=== PATIENT | female | born 1955 | race Caucasian/White ===

== ENCOUNTER 2018-03-25 17:54 | Emergency (ER) | payer BC, OTHER ==
[2018-03-25] MEDS ORDERED: ACETAMINOPHEN 500 MG TAB ONE ×2 (18:28→18:30)
--- NOTE | 2018-03-25 18:48 | RAD REPORT ---
EXAM DESCRIPTION: RAD - Chest Pa And Lat (2 Views) - 03/25/2018 6:43 pm CLINICAL HISTORY: COUGH Chest pain. COMPARISON: Chest Pa And Lat (2 Views) dated 02/24/2016 FINDINGS: The lungs are hyperexpanded but clear. The heart is normal in size. No displaced fractures . IMPRESSION: Mild hyperexpanded lungs.
--- NOTE | 2018-03-25 19:21 | ER ---
Nurse's Notes [facility] Name: Denny Clark Age: 62 yrs Sex: Female : 1955 Arrival Date: 03/25/2018 Time: 18:01 Bed 20 Private MD: Diagnosis: Acute upper respiratory infection, unspecified Presentation: 03/25 18:14 Presenting complaint: Patient states: I have had a dry cough for 2 days and I was la1 around some one with the flu. Transition of care: patient was not received from another setting of care. Onset of symptoms was March 25, 2018. Risk Assessment: Do you want to hurt yourself or someone else? Patient reports no desire to harm self or others. Initial Sepsis Screen: Does the patient meet any 2 criteria? No. Patient's initial sepsis screen is negative. Does the patient have a suspected source of infection? No. Patient's initial sepsis screen is negative. Care prior to arrival: None. 18:14 Method Of Arrival: Ambulatory la1 18:14 Acuity: RICH 3 la1 Historical: - Allergies: 18:15 No Known Allergies; la1 - PMHx: 18:15 Hypertension; la1 - Immunization history:: Adult Immunizations up to date. - Social history:: Smoking status: Patient/guardian denies using tobacco. - Ebola Screening: : No symptoms or risks identified at this time. Screenin:11 Abuse screen: Denies threats or abuse. Nutritional screening: No deficits noted. ea Tuberculosis screening: No symptoms or risk factors identified. Fall Risk None identified. Assessment: 19:10 General: Appears in no apparent distress. Behavior is calm, cooperative, appropriate ea for age. Pain: Complains of pain in body aches. Neuro: Level of Consciousness is awake, alert, obeys commands, Oriented to person, place, time, situation. Cardiovascular: Patient's skin is warm and dry. Respiratory: Airway is patent Respiratory effort is even, unlabored, Respiratory pattern is regular, symmetrical. Respiratory: Breath sounds with rhonchi. GI: Abdomen is non-distended, Bowel sounds present X 4 quads. Derm: Skin is pink, warm \T\ dry. 19:33 Reassessment: Patient and/or family updated on plan of care and expected duration. Pain ea level reassessed. Patient is alert, oriented x 3, equal unlabored respirations, skin warm/dry/pink. Discharge instruction given to patient, verbalized the understanding of instruction. Vital Signs: 18:15 BP 185 / 89; Pulse 124; Resp 18; Temp 100.3; Pulse Ox 98% on R/A; Weight 90.72 kg; la1 Height 5 ft. 9 in. (175.26 cm); 19:10 Temp 99.6(O); ea 19:12 BP 170 / 72; Pulse 100; Resp 18; Pulse Ox 99% ; ea 18:15 Body Mass Index 29.53 (90.72 kg, 175.26 cm) la1 ED Course: 18:01 Patient arrived in ED. mr 18:15 Triage completed. la1 18:16 Arm band placed on left wrist. la1 18:18 Al Cooper NP is PHCP. pm1 18:18 Micheal Mishra MD is Attending Physician. pm1 18:41 Chest Pa And Lat (2 Views) XRAY In Process Unspecified. EDMS 19:09 Rita De La Rosa RN is Primary Nurse. ea 19:12 Patient has correct armband on for positive identification. Call light in reach. ea 19:34 No provider procedures requiring assistance completed. Patient did not have IV access ea during this emergency room visit. Administered Medications: 18:23 Drug: Tylenol 1000 mg Route: PO; la1 19:10 Follow up: Temp 99.6 Oral; Response: No adverse reaction; Temperature is decreased ea Outcome: 19:21 Discharge ordered by . pm1 19:35 Discharged to home ambulatory. ea 19:35 Condition: good 19:35 Discharge instructions given to patient, Instructed on discharge instructions, follow up and referral plans. medication usage, Demonstrated understanding of instructions, follow-up care, medications, Prescriptions given X 1. 19:35 Patient left the ED. ea Signatures: Dispatcher [employer] EDSD Cat Barnes, Colby, RN RN la1 Al Cooper, KYRA RN RELIEF CHARGE pm1 Rita De La Rosa RN RN ea
--- NOTE | 2018-03-25 19:21 | EDPHYS ---
Physician Documentation [facility] Name: Denny Clark Age: 62 yrs Sex: Female : 1955 Arrival Date: 03/25/2018 Time: 18:01 Bed 20 Private MD: ED Physician Micheal Mishra HPI: 03/25 19:02 This 62 yrs old Female presents to ER via Ambulatory with complaints of Cough.pm1 19:02 The patient or guardian reports cough, with no sputum. Onset: The symptoms/episode pm1 began/occurred 2 day(s) ago. Modifying factors: The symptoms are alleviated by nothing, the symptoms are aggravated by nothing. Associated signs and symptoms: Pertinent negatives: chest pain. 19:02 Associated signs and symptoms: Pertinent positives: rhinorrhea, Pertinent negatives: pm1 diarrhea, ear ache, fever, sore throat, vomiting. Patient was around someone with the flu and was concerned that she might have it. Historical: - Allergies: 18:15 No Known Allergies; la1 - PMHx: 18:15 Hypertension; la1 - Immunization history:: Adult Immunizations up to date. - Social history:: Smoking status: Patient/guardian denies using tobacco. - Ebola Screening: : No symptoms or risks identified at this time. ROS: 19:02 Constitutional: Negative for fever, chills, and weight loss, Eyes: Negative for injury, pm1 pain, redness, and discharge, ENT: Negative for injury, pain, and discharge, Neck: Negative for injury, pain, and swelling, Cardiovascular: Negative for chest pain, palpitations, and edema. 19:02 Abdomen/GI: Negative for abdominal pain, nausea, vomiting, diarrhea, and constipation, Back: Negative for injury and pain, : Negative for injury, bleeding, discharge, and swelling, MS/Extremity: Negative for injury and deformity, Skin: Negative for injury, rash, and discoloration, Neuro: Negative for headache, weakness, numbness, tingling, and seizure. 19:02 Respiratory: Positive for cough, Negative for shortness of breath, sputum production, wheezing. Exam: 19:02 Constitutional: This is a well developed, well nourished patient who is awake, alert, pm1 and in no acute distress. Head/Face: Normocephalic, atraumatic. Eyes: Pupils equal round and reactive to light, extra-ocular motions intact. Lids and lashes normal. Conjunctiva and sclera are non-icteric and not injected. Cornea within normal limits. Periorbital areas with no swelling, redness, or edema. ENT: Nares patent. No nasal discharge, no septal abnormalities noted. Tympanic membranes are normal and external auditory canals are clear. Oropharynx with no redness, swelling, or masses, exudates, or evidence of obstruction, uvula midline. Mucous membranes moist. Neck: Trachea midline, no thyromegaly or masses palpated, and no cervical lymphadenopathy. Supple, full range of motion without nuchal rigidity, or vertebral point tenderness. No Meningismus. Chest/axilla: Normal chest wall appearance and motion. Nontender with no deformity. No lesions are appreciated. Cardiovascular: Regular rate and rhythm with a normal S1 and S2. No gallops, murmurs, or rubs. Normal PMI, no JVD. No pulse deficits. 19:02 Abdomen/GI: Soft, non-tender, with normal bowel sounds. No distension or tympany. No guarding or rebound. No evidence of tenderness throughout. Back: No spinal tenderness. No costovertebral tenderness. Full range of motion. Skin: Warm, dry with normal turgor. Normal color with no rashes, no lesions, and no evidence of cellulitis. MS/ Extremity: Pulses equal, no cyanosis. Neurovascular intact. Full, normal range of motion. 19:02 Respiratory: the patient does not display signs of respiratory distress, Respirations: normal, Breath sounds: are clear throughout, no bronchial sounds, no decreased breath sounds, no rales, rhonchi, no wheezing. 19:02 Neuro: Orientation: is normal, Motor: is normal, moves all fours. Vital Signs: 18:15 BP 185 / 89; Pulse 124; Resp 18; Temp 100.3; Pulse Ox 98% on R/A; Weight 90.72 kg; la1 Height 5 ft. 9 in. (175.26 cm); 19:10 Temp 99.6(O); ea 19:12 BP 170 / 72; Pulse 100; Resp 18; Pulse Ox 99% ; ea 18:15 Body Mass Index 29.53 (90.72 kg, 175.26 cm) la1 MDM: 19:02 Patient medically screened. pm1 19:20 Data reviewed: vital signs. Data interpreted: Pulse oximetry: on room air is 99 %. pm1 Interpretation: normal. Counseling: I had a detailed discussion with the patient and/or guardian regarding: the historical points, exam findings, and any diagnostic results supporting the discharge/admit diagnosis, lab results, radiology results, the need for outpatient follow up, to return to the emergency department if symptoms worsen or persist or if there are any questions or concerns that arise at home. 03/25 18:19 Order name: Flu; Complete Time: 18:48 pm1 03/25 18:19 Order name: Chest Pa And Lat (2 Views) XRAY; Complete Time: 18:50 pm1 Administered Medications: 18:23 Drug: Tylenol 1000 mg Route: PO; la1 19:10 Follow up: Temp 99.6 Oral; Response: No adverse reaction; Temperature is decreased ea Disposition: 03/25/18 19:21 Discharged to Home. Impression: Acute upper respiratory infection, unspecified. - Condition is Stable. - Discharge Instructions: Antibiotic Resistance, Upper Respiratory Infection, Adult, Viral Respiratory Infection. - Prescriptions for Guaifenesin AC 10- 100 mg/5 mL Oral Liquid - take 10 milliliter by ORAL route every 4 hours As needed; 240 milliliter. - Medication Reconciliation Form, Thank You Letter, Antibiotic Education form. - Follow up: Emergency Department; When: As needed; Reason: Worsening of condition. Follow up: Private Physician; When: 2 - 3 days; Reason: Recheck today's complaints, Continuance of care, Re-evaluation by your physician. - Problem is new. - Symptoms have improved. Addendum: 04/03/2018 06:58 Co-signature as Attending Physician, Micheal Mishra MD. r n Signatures: Dispatcher [employer] EDMS Micheal Mishra MD MD rn Attema, Lee RN RN la1 Al Cooper NP CAMERA ENGINEER pm1 Rita De La Rosa RN RN beata Corrections: (The following items were deleted from the chart) 03/25 19:35 19:21 03/25/2018 19:21 Discharged to Home. Impression: Acute upper respiratory ea infection, unspecified. Condition is Stable. Forms are Medication Reconciliation Form, Thank You Letter, Antibiotic Education, Prescription Opioid Use. Follow up: Emergency Department; When: As needed; Reason: Worsening of condition. Follow up: Private Physician; When: 2 - 3 days; Reason: Recheck today's complaints, Continuance of care, Re-evaluation by your physician. Problem is new. Symptoms have improved. pm1
== END 2018-03-25 19:35 | disposition home or self-care (01) ==
LOC: ER 17:54
DX: J06.9 Acute upper respiratory infection, unspecified (principal); I10 Essential (primary) hypertension
CPT/HCPCS: 71046; 87804; 99283

== ENCOUNTER 2018-05-16 23:25 | Emergency (ER) | payer BC ==
[2018-05-17] MEDS ORDERED: HYDROCODONE/APAP 7.5/325 MG TAB ONE (01:36)
--- NOTE | 2018-05-17 02:51 | ER ---
Nurse's Notes [facility] Name: Denny Clark Age: 62 yrs Sex: Female : 1955 Arrival Date: 05/16/2018 Time: 23:27 Bed 6 Private MD: Diagnosis: Contusion of left foot-cuboid fracture;Cough Presentation: 05/16 23:46 Presenting complaint: Patient states: cough X2 weeks. pt c/o left foot pain after ak1 dropping a box on top of the foot at 1800. pt ambulates with a cane due to sciatic pain. Transition of care: patient was not received from another setting of care. Onset of symptoms was May 16, 2018. Risk Assessment: Do you want to hurt yourself or someone else? Patient reports no desire to harm self or others. Care prior to arrival: None. 23:46 Method Of Arrival: Ambulatory ak 23:46 Acuity: RICH 4 ak1 05/17 01:03 Initial Sepsis Screen: Does the patient meet any 2 criteria? No. Patient's initial ea sepsis screen is negative. Does the patient have a suspected source of infection? Yes: Productive cough/pneumonia. Triage Assessment: 05/16 23:52 General: Appears in no apparent distress. Behavior is calm, cooperative. ak1 Historical: - Allergies: 23:52 No Known Allergies; ak1 - Home Meds: 23:52 None [Active]; ak1 - PMHx: 23:52 Hypertension; ak1 - PSHx: 23:52 Hysterectomy; left ft sx; ak1 - Immunization history:: Adult Immunizations unknown. - Social history:: Smoking status: Patient/guardian denies using tobacco. - Ebola Screening: : No symptoms or risks identified at this time. - Family history:: not pertinent. Screenin/12 01:02 Abuse screen: Denies threats or abuse. Nutritional screening: No deficits noted. ea Tuberculosis screening: No symptoms or risk factors identified. Fall Risk Ambulatory Aid- Crutches/Cane/Walker (15 pts). Assessment: 01:01 General: Appears in no apparent distress. Behavior is calm, cooperative, appropriate ea for age. Pain: Complains of pain in dorsum of left foot Pain currently is 5 out of 10 on a pain scale. Neuro: Level of Consciousness is awake, alert, obeys commands, Oriented to person, place, time, situation. Cardiovascular: Patient's skin is warm and dry. Respiratory: Breath sounds with rhonchi in left posterior lower lobe and right posterior middle lobe. GI: No signs and/or symptoms were reported involving the gastrointestinal system. : No signs and/or symptoms were reported regarding the genitourinary system. Derm: Skin is pink, warm \T\ dry. Musculoskeletal: Circulation, motion, and sensation intact. 02:38 Reassessment: Patient and/or family updated on plan of care and expected duration. Pain ea level reassessed. Patient is alert, oriented x 3, equal unlabored respirations, skin warm/dry/pink. Awaiting on results. 03:35 Reassessment: Patient and/or family updated on plan of care and expected duration. Pain ea level reassessed. Patient is alert, oriented x 3, equal unlabored respirations, skin warm/dry/pink. Discharge instructions given to patient, verbalized the understanding of instruction. Vital Signs: 05/16 23:52 BP 190 / 81; Pulse 88; Resp 18; Temp 98.1(O); Pulse Ox 97% on R/A; Weight 90.72 kg (R); ak1 Height 5 ft. 9 in. (175.26 cm) (R); Pain 10/10; 05/17 00:30 BP 162 / 82; Pulse 80; Resp 18; Pulse Ox 97% on R/A; ea 01:50 BP 162 / 82; Pulse 81; Resp 18; Pulse Ox 98% on R/A; ea 02:35 BP 160 / 78; Pulse 80; Resp 18; Pulse Ox 98% on R/A; ea 03:15 BP 162 / 80; Pulse 80; Resp 18; Pulse Ox 98% on R/A; ea 05/16 23:52 Body Mass Index 29.53 (90.72 kg, 175.26 cm) ak1 ED Course: 05/16 23:27 Patient arrived in ED. am2 23:51 Triage completed. ak1 23:52 Arm band placed on Patient placed in waiting room, Patient notified of wait time. ak1 05/17 00:51 Morris Echols RN is Primary Nurse. ao 01:02 Sandor Cavazos MD is Attending Physician. shay 01:03 Patient has correct armband on for positive identification. Bed in low position. Call ea light in reach. Side rails up X2. 01:58 Chest Single View XRAY In Process Unspecified. EDMS 01:58 Foot Left 3 View XRAY In Process Unspecified. EDMS 03:35 No provider procedures requiring assistance completed. Patient did not have IV access ea during this emergency room visit. Administered Medications: 03:34 Drug: [place] (7.5 mg-325 mg) 1 tabs Route: PO; ea 03:34 Follow up: Response: Medication administered at discharge. ea Outcome: 02:51 Discharge ordered by . shay 03:35 Discharged to home ambulatory. ea 03:35 Condition: stable 03:35 Discharge instructions given to patient, Instructed on discharge instructions, follow up and referral plans. medication usage, Demonstrated understanding of instructions, follow-up care, medications, Prescriptions given X 2. 03:38 Patient left the ED. ea Signatures: Dispatcher [employer] EDNH Sandor Cavazos MD MD cha Krenek, Amber RN RN Morris Henderson RN Debbie Taveras Elena, RN RN ea
--- NOTE | 2018-05-17 02:51 | EDPHYS ---
Physician Documentation [facility] Name: Denny Clark Age: 62 yrs Sex: Female : 1955 Arrival Date: 05/16/2018 Time: 23:27 Bed 6 Private MD: SANDRA Physician Sandor Cavazos HPI: 05/17 01:13 This 62 yrs old Female presents to ER via Ambulatory with complaints of shay Cough, Foot Injury. 01:13 The patient or guardian reports cough, that is intermittent. Onset: The shay symptoms/episode began/occurred 3 day(s) ago. Severity of symptoms: At their worst the symptoms were moderate, in the emergency department the symptoms are unchanged. Associated signs and symptoms: The patient has no apparent associated signs or symptoms. 01:14 The patient presents with decreased range of motion, pain, swelling, tenderness. The shay complaints affect the left foot. Context: The problem was sustained at home. Modifying factors: The symptoms are alleviated by elevation of extremity, the symptoms are aggravated by weight bearing, movement. Modifying factors: The symptoms are alleviated by nothing, the symptoms are aggravated by nothing. Associated signs and symptoms: The patient has no apparent associated signs or symptoms. Historical: - Allergies: 05/16 23:52 No Known Allergies; ak1 - Home Meds: 23:52 None [Active]; ak1 - PMHx: 23:52 Hypertension; ak1 - PSHx: 23:52 Hysterectomy; left ft sx; ak1 - Immunization history:: Adult Immunizations unknown. - Social history:: Smoking status: Patient/guardian denies using tobacco. - Ebola Screening: : No symptoms or risks identified at this time. - Family history:: not pertinent. ROS: 05/17 01:14 Constitutional: Negative for fever, chills, and weight loss, Eyes: Negative for injury, shay pain, redness, and discharge, ENT: Negative for injury, pain, and discharge, Neck: Negative for injury, pain, and swelling, Cardiovascular: Negative for chest pain, palpitations, and edema, Abdomen/GI: Negative for abdominal pain, nausea, vomiting, diarrhea, and constipation, Back: Negative for injury and pain, : Negative for injury, bleeding, discharge, and swelling, MS/Extremity: Negative for injury and deformity, Skin: Negative for injury, rash, and discoloration, Neuro: Negative for headache, weakness, numbness, tingling, and seizure, Psych: Negative for depression, anxiety, suicide ideation, homicidal ideation, and hallucinations, Allergy/Immunology: Negative for hives, rash, and allergies, Endocrine: Negative for neck swelling, polydipsia, polyuria, polyphagia, and marked weight changes, Hematologic/Lymphatic: Negative for swollen nodes, abnormal bleeding, and unusual bruising. Respiratory: Positive for cough. MS/extremity: Positive for pain, swelling, tenderness, of the dorsum of left foot. Exam: :14 Constitutional: This is a well developed, well nourished patient who is awake, alert, shay and in no acute distress. Head/Face: Normocephalic, atraumatic. Eyes: Pupils equal round and reactive to light, extra-ocular motions intact. Lids and lashes normal. Conjunctiva and sclera are non-icteric and not injected. Cornea within normal limits. Periorbital areas with no swelling, redness, or edema. ENT: Nares patent. No nasal discharge, no septal abnormalities noted. Tympanic membranes are normal and external auditory canals are clear. Oropharynx with no redness, swelling, or masses, exudates, or evidence of obstruction, uvula midline. Mucous membranes moist. Neck: Trachea midline, no thyromegaly or masses palpated, and no cervical lymphadenopathy. Supple, full range of motion without nuchal rigidity, or vertebral point tenderness. No Meningismus. Chest/axilla: Normal chest wall appearance and motion. Nontender with no deformity. No lesions are appreciated. Cardiovascular: Regular rate and rhythm with a normal S1 and S2. No gallops, murmurs, or rubs. Normal PMI, no JVD. No pulse deficits. Respiratory: Lungs have equal breath sounds bilaterally, clear to auscultation and percussion. No rales, rhonchi or wheezes noted. No increased work of breathing, no retractions or nasal flaring. Abdomen/GI: Soft, non-tender, with normal bowel sounds. No distension or tympany. No guarding or rebound. No evidence of tenderness throughout. Back: No spinal tenderness. No costovertebral tenderness. Full range of motion. Female : Normal external genitalia. Skin: Warm, dry with normal turgor. Normal color with no rashes, no lesions, and no evidence of cellulitis. Neuro: Awake and alert, GCS 15, oriented to person, place, time, and situation. Cranial nerves II-XII grossly intact. Motor strength 5/5 in all extremities. Sensory grossly intact. Cerebellar exam normal. Normal gait. Psych: Awake, alert, with orientation to person, place and time. Behavior, mood, and affect are within normal limits. 01:14 Musculoskeletal/extremity: ROM: intact in all extremities, full active range of motion, full passive range of motion, Circulation is intact in all extremities. Sensation intact. Compartment Syndrome exam of affected extremity: is normal. DVT Exam: no pain, no swelling, no tenderness, negative Homans' sign noted on exam, no appreciated bluish discoloration, no erythema, no increased warmth. Vital Signs: 05/16 23:52 BP 190 / 81; Pulse 88; Resp 18; Temp 98.1(O); Pulse Ox 97% on R/A; Weight 90.72 kg (R); ak1 Height 5 ft. 9 in. (175.26 cm) (R); Pain 10/10; 05/17 00:30 BP 162 / 82; Pulse 80; Resp 18; Pulse Ox 97% on R/A; ea 01:50 BP 162 / 82; Pulse 81; Resp 18; Pulse Ox 98% on R/A; ea 02:35 BP 160 / 78; Pulse 80; Resp 18; Pulse Ox 98% on R/A; ea 03:15 BP 162 / 80; Pulse 80; Resp 18; Pulse Ox 98% on R/A; ea 05/16 23:52 Body Mass Index 29.53 (90.72 kg, 175.26 cm) ak1 MDM: 01:02 Patient medically screened[address] [facility] 01:17 Data reviewed: vital signs, nurses notes, lab test result(s), EKG, radiologic studies. [facility] 05/17 01:13 Order name: Chest Single View XRAY [facility] 05/17 01:13 Order name: Foot Left [address] [facility] 05/17 01:13 Order name: Ice pack; Complete Time: 01:[address] [facility] 05/17 02:46 Order name: Walking boot: left , short; Complete Time: 03:34 shay Administered Medications: 03:34 Drug: [place] (7.5 mg-325 mg) 1 tabs Route: PO; ea 03:34 Follow up: Response: Medication administered at discharge. ea Disposition: 05/17/18 02:51 Discharged to Home. Impression: Contusion of left foot - cuboid fracture, Cough. - Condition is Stable. - Discharge Instructions: Foot Contusion, Cough, Adult, [id number], Foot Contusion, [id number], Cough, Adult. - Prescriptions for Tylenol- Codeine #3 300-30 mg Oral Tablet - take 2 tablets by ORAL route every 6 hours As needed; 26 tablet. Zithromax Z- Klaus 250 mg Oral Tablet - take 1 tablet by ORAL route as directed for 5 days Day 1 - take two (2) tablets one time. Day 2, 3, 4 , 5 take one (1) tablet once daily.; 6 tablet. - Medication Reconciliation Form, Thank You Letter, Antibiotic Education, Prescription Opioid Use form. - Follow up: Private Physician; When: 2 - 3 days; Reason: Recheck today's complaints, Continuance of care, Re-evaluation by your physician. - Problem is new. - Symptoms have improved. Signatures: Dispatcher [employer] EDMS Sandor Cavazos MD MD cha Krenek, Amber RN RN ak1 Rita De La Rosa RN RN ea Corrections: (The following items were deleted from the chart) 02:45 01:13 Ortho shoe ordered. shay day 03:38 02:51 05/17/2018 02:51 Discharged to Home. Impression: Contusion of left foot - cuboid ea fracture; Cough. Condition is Stable. Forms are Medication Reconciliation Form, Thank You Letter, Antibiotic Education, Prescription Opioid Use. Follow up: Private Physician; When: 2 - 3 days; Reason: Recheck today's complaints, Continuance of care, Re-evaluation by your physician. Problem is new. Symptoms have improved. shay
--- NOTE | 2018-05-17 08:39 | RAD REPORT ---
EXAM DESCRIPTION: RAD - Chest Single View - 05/17/2018 2:04 am CLINICAL HISTORY: COUGH Chest pain. COMPARISON: Chest Pa And Lat (2 Views) dated 03/25/2018; Chest Pa And Lat (2 Views) dated 02/24/2016 FINDINGS: Portable technique limits examination quality. The lungs are mildly emphysematous but grossly clear. The heart is mildly prominent in size. No displ aced fractures.
--- NOTE | 2018-05-17 08:39 | RAD REPORT ---
EXAM DESCRIPTION: RAD - Foot Left 3 View - 05/17/2018 2:04 am CLINICAL HISTORY: PAIN COMPARISON: Foot Left 3 View dated 05/22/2015 FINDINGS: Prominent osteopenia is seen. No acute fracture or dislocation is demonstrated. No aggress danilo bone lesion. Tiny calcaneal spurs.
== END 2018-05-17 03:38 | disposition home or self-care (01) ==
LOC: ER 23:25
DX: R05 Cough (principal); S90.32XA Contusion of left foot, initial encounter; S92.212A Displaced fracture of cuboid bone of left foot, initial encounter for closed fracture; I10 Essential (primary) hypertension
CPT/HCPCS: 71045; 99283

== ENCOUNTER 2018-10-13 14:29 | Emergency (ER) | payer OTHER ==
--- NOTE | 2018-10-13 17:26 | RAD REPORT ---
EXAM DESCRIPTION: RAD - Femur Left - 10/13/2018 5:16 pm CLINICAL HISTORY: Pain;Smash injury COMPARISON: <Comparisons> FINDINGS: Mild osteoarthritic changes affect the left hip. No acute fracture or dislocation.
--- NOTE | 2018-10-13 17:27 | RAD REPORT ---
EXAM DESCRIPTION: RAD - Pelvis - 10/13/2018 5:16 pm CLINICAL HISTORY: fall;Pain COMPARISON: <Comparisons> FINDINGS: No fracture, dislocation or radiographic evidence of AVN. IMPRESSION: Negative study.
--- NOTE | 2018-10-13 17:28 | RAD REPORT ---
EXAM DESCRIPTION: RAD - Knee Right 3 View - 10/13/2018 5:16 pm CLINICAL HISTORY: Pain;Smash injury COMPARISON: <Comparisons> FINDINGS: No fracture or dislocation seen.
[2018-10-13] MEDS ORDERED: KETOROLAC 30 MG/ML INJ ONE (17:31)
--- NOTE | 2018-10-13 17:40 | EDPHYS ---
Physician Documentation [facility] Name: Denny Clark Age: 62 yrs Sex: Female : 1955 Arrival Date: 10/13/2018 Time: 14:29 Bed 20 Private MD: ED Physician Xavier Nelson HPI: 10/13 15:58 This 62 yrs old Female presents to ER via Wheelchair with complaints of Fall snw Injury - yest. 15:58 Details of fall: The patient fell from an upright position, while standing. Onset: The snw symptoms/episode began/occurred suddenly, 1 day(s) ago. Associated injuries: The patient sustained right leg and left leg. Severity of symptoms: At their worst the symptoms were moderate. It is unknown whether or not the patient has had similar symptoms in the past. It is unknown whether or not the patient has recently seen a physician. Historical: - Allergies: 15:38 PENICILLINS; ph - Immunization history:: Adult Immunizations up to date. - Social history:: Smoking status: Patient/guardian denies using tobacco. - Ebola Screening: : Patient denies travel to an Ebola-affected area in the 21 days before illness onset No symptoms or risks identified at this time. ROS: 15:58 Constitutional: Negative for fever, chills, and weight loss, Eyes: Negative for injury, snw pain, redness, and discharge, ENT: Negative for injury, pain, and discharge, Neck: Negative for injury, pain, and swelling, Cardiovascular: Negative for chest pain, palpitations, and edema, Respiratory: Negative for shortness of breath, cough, wheezing, and pleuritic chest pain, Abdomen/GI: Negative for abdominal pain, nausea, vomiting, diarrhea, and constipation, Back: Negative for injury and pain, : Negative for injury, bleeding, discharge, and swelling, Skin: Negative for injury, rash, and discoloration, Neuro: Negative for headache, weakness, numbness, tingling, and seizure. 15:58 MS/extremity: Positive for injury or acute deformity, contusion, pain, tenderness, of the right leg and left leg. Exam: 15:57 Constitutional: This is a well developed, tremulous, well nourished patient who is snw awake, alert, and in no acute distress. Head/Face: Normocephalic, atraumatic. Eyes: Pupils equal round and reactive to light, extra-ocular motions intact. Lids and lashes normal. Conjunctiva and sclera are non-icteric and not injected. Cornea within normal limits. Periorbital areas with no swelling, redness, or edema. ENT: Nares patent. No nasal discharge, no septal abnormalities noted. Tympanic membranes are normal and external auditory canals are clear. Oropharynx with no redness, swelling, or masses, exudates, or evidence of obstruction, uvula midline. Mucous membranes moist. Neck: Trachea midline, no thyromegaly or masses palpated, and no cervical lymphadenopathy. Supple, full range of motion without nuchal rigidity, or vertebral point tenderness. No Meningismus. Chest/axilla: Normal chest wall appearance and motion. Nontender with no deformity. No lesions are appreciated. Cardiovascular: Regular rate and rhythm with a normal S1 and S2. No gallops, murmurs, or rubs. Normal PMI, no JVD. No pulse deficits. Respiratory: Lungs have equal breath sounds bilaterally, clear to auscultation and percussion. No rales, rhonchi or wheezes noted. No increased work of breathing, no retractions or nasal flaring. Abdomen/GI: Soft, non-tender, with normal bowel sounds. No distension or tympany. No guarding or rebound. No evidence of tenderness throughout. Back: No spinal tenderness. No costovertebral tenderness. Full range of motion. Skin: Warm, dry with normal turgor. Normal color with no rashes, no lesions, and no evidence of cellulitis. Neuro: Awake and alert, GCS 15, oriented to person, place, time, and situation. Cranial nerves II-XII grossly intact. Motor strength 5/5 in all extremities. Sensory grossly intact. Cerebellar exam normal. Normal gait. Psych: Awake, alert, with orientation to person, place and time. Behavior, mood, and affect are within normal limits. 15:57 Musculoskeletal/extremity: Extremities: grossly normal except: noted in the left leg: noted in the right knee: ROM: intact in all extremities, Circulation is intact in all extremities. Sensation intact. Vital Signs: 15:37 BP 170 / 89; Pulse 86; Resp 18; Temp 98.0; Pulse Ox 99% on R/A; Weight 96.16 kg; ph 16:30 BP 168 / 75; Pulse 79; Resp 19; Temp 97.9; Pulse Ox 95% on R/A; mh5 MDM: 15:29 Patient medically screened. snw 17:40 Data reviewed: vital signs, nurses notes. Data interpreted: Pulse oximetry: on room air snw is 95 %. Interpretation: acceptable. Counseling: I had a detailed discussion with the patient and/or guardian regarding: the historical points, exam findings, and any diagnostic results supporting the discharge/admit diagnosis, the presence of at least one elevated blood pressure reading (>120/80) during this emergency department visit, radiology results, the need for outpatient follow up, to return to the emergency department if symptoms worsen or persist or if there are any questions or concerns that arise at home. Special discussion: I have referred the patient to see his PCP for further evaluation of high blood pressure. Based on the history and exam findings, there is no indication for further emergent testing or inpatient evaluation. I discussed with the patient/guardian the need to see the primary care provider for further evaluation of the symptoms. 10/13 15:57 Order name: Pelvis XRAY; Complete Time: 17:37 snw 10/13 15:57 Order name: Femur Left XRAY; Complete Time: 17:27 snw 10/13 15:57 Order name: Knee Right 3 View XRAY; Complete Time: 17:37 snw Administered Medications: 17:23 Drug: TORadol 30 mg Route: IM; Site: right gluteus; ae4 18:21 Follow up: Response: Pain is decreased aj Disposition: 18:52 Co-signature as Attending Physician, Xavier Nelson MD I agree with the assessment and kdr plan of care. Disposition: 10/13/18 17:39 Discharged to Home. Impression: Fall on same level, unspecified, Pain in left hip, Pain in right knee. - Condition is Stable. - Discharge Instructions: Fall Prevention in the Home, Musculoskeletal Pain, Knee Pain, Cryotherapy, [id number], Hip Pain, Heat Therapy. - Prescriptions for Diclofenac Sodium 75 mg Oral Tablet Sustained Release - take 1 tablet by ORAL route 2 times per day; 30 tablet. orphenadrine citrate 100 mg Oral Tablet Sustained Release - take 1 tablet by ORAL route 2 times per day As needed; 20 tablet. - Medication Reconciliation Form, Thank You Letter, Antibiotic Education, Prescription Opioid Use form. - Follow up: Private Physician; When: 1 - 2 days; Reason: Recheck today's complaints, Continuance of care, Re-evaluation by your physician. Follow up: Emergency Department; When: As needed; Reason: Worsening of condition. Signatures: Dispatcher [employer] EDMS Xavier Nelson MD MD [facility] Rin Sun, YARDER ENGINEER-C YARDER ENGINEER-Csnw Torri Edge RN RN [place] Ferrell RN RN ae4 Debbie Obregon RN aj Corrections: (The following items were deleted from the chart) 16:00 15:58 Onset: The symptoms/episode began/occurred suddenly, 2 day(s) ago, snw snw 18:27 17:39 10/13/2018 17:39 Discharged to Home. Impression: Fall on same level, unspecified; ae4 Pain in left hip; Pain in right knee. Condition is Stable. Forms are Medication Reconciliation Form, Thank You Letter, Antibiotic Education, Prescription Opioid Use. Follow up: Private Physician; When: 1 - 2 days; Reason: Recheck today's complaints, Continuance of care, Re-evaluation by your physician. Follow up: Emergency Department; When: As needed; Reason: Worsening of condition. snw
--- NOTE | 2018-10-13 17:40 | ER ---
Nurse's Notes [facility] Name: Denny Clark Age: 62 yrs Sex: Female : 1955 Arrival Date: 10/13/2018 Time: 14:29 Bed 20 Private MD: Diagnosis: Fall on same level, unspecified;Pain in left hip;Pain in right knee Presentation: 10/13 15:37 Presenting complaint: Patient states: Slipped and fell yesterday, c/o jeyson leg pain, ph worse on L side, denies head injury or LOC. Transition of care: patient was not received from another setting of care. Onset of symptoms was October 13, 2018. Risk Assessment: Do you want to hurt yourself or someone else? Patient reports no desire to harm self or others. Initial Sepsis Screen: Does the patient meet any 2 criteria? No. Patient's initial sepsis screen is negative. Does the patient have a suspected source of infection? No. Patient's initial sepsis screen is negative. 15:37 Method Of Arrival: Wheelchair ph 15:37 Acuity: RICH 4 ph 18:39 Care prior to arrival: None. ae4 Triage Assessment: 17:00 General: Appears in no apparent distress. comfortable, Behavior is calm, cooperative. ae4 Neuro: Level of Consciousness is awake, alert, obeys commands. Respiratory: Airway is patent. Historical: - Allergies: 15:38 PENICILLINS; ph - Immunization history:: Adult Immunizations up to date. - Social history:: Smoking status: Patient/guardian denies using tobacco. - Ebola Screening: : Patient denies travel to an Ebola-affected area in the 21 days before illness onset No symptoms or risks identified at this time. Screenin:20 Abuse screen: Denies threats or abuse. Denies injuries from another. Nutritional aj screening: No deficits noted. Tuberculosis screening: No symptoms or risk factors identified. Fall Risk None identified. Assessment: 15:40 General: Appears in no apparent distress. uncomfortable, unkempt, Behavior is ae4 cooperative, anxious. Pain: Complains of pain in lateral aspect of right knee and right knee Pain currently is 8 out of 10 on a pain scale. Neuro: Level of Consciousness is awake, alert, obeys commands, Oriented to person, place, time, situation, Appropriate for age. Cardiovascular: Patient's skin is warm and dry. Respiratory: Airway is patent Respiratory effort is even, unlabored, Respiratory pattern is regular, symmetrical. GI: No signs and/or symptoms were reported involving the gastrointestinal system. Abdomen is round non-distended, Abd is soft and non tender. : No signs and/or symptoms were reported regarding the genitourinary system. EENT: No signs and/or symptoms were reported regarding the EENT system. Derm: Light purple bruise and dry healing abrasion to the right knee. Musculoskeletal: Swelling present in right knee. 16:30 Reassessment: Patient appears in no apparent distress at this time. Patient and/or ae4 family updated on plan of care and expected duration. Pain level reassessed. 17:30 Reassessment: Patient is alert, oriented x 3, equal unlabored respirations, skin ae4 warm/dry/pink. Patient states feeling better. Vital Signs: 15:37 BP 170 / 89; Pulse 86; Resp 18; Temp 98.0; Pulse Ox 99% on R/A; Weight 96.16 kg; ph 16:30 BP 168 / 75; Pulse 79; Resp 19; Temp 97.9; Pulse Ox 95% on R/A; mh5 ED Course: 14:29 Patient arrived in ED. as 15:28 Rin Sun FNP-C [facility]. snw 15:29 Xavier Nelson MD is Attending Physician. snw 15:30 Arm band placed on right wrist. ae4 15:37 Triage completed. ph 15:55 [place] Ferrell, DEDE is Primary Nurse. ae4 17:18 Pelvis XRAY In Process Unspecified. EDMS 17:18 Femur Left XRAY In Process Unspecified. EDMS 17:18 Knee Right 3 View XRAY In Process Unspecified. EDMS 18:20 No provider procedures requiring assistance completed. Patient did not have IV access aj during this emergency room visit. 18:20 Patient has correct armband on for positive identification. aj Administered Medications: 17:23 Drug: TORadol 30 mg Route: IM; Site: right gluteus; ae4 18:21 Follow up: Response: Pain is decreased aj Outcome: 17:39 Discharge ordered by . snw 18:20 Discharged to home ambulatory. aj 18:20 Condition: good 18:20 Discharge instructions given to patient, Instructed on discharge instructions, follow up and referral plans. medication usage, Demonstrated understanding of instructions, follow-up care, medications, Prescriptions given X 2. 18:27 Patient left the ED. ae4 Signatures: Dispatcher [employer] EDDebbie Pleitez, RN RN Rin Lauren, CODE ENFORCEMENT INSPECTOR-C CODE ENFORCEMENT INSPECTOR-Csnw Barb Abernathy Patricia, RN RN Jennifer Abernathy [facility] [place] Ferrell RN RN ae4
== END 2018-10-13 18:27 | disposition home or self-care (01) ==
LOC: ER 14:29
DX: M25.561 Pain in right knee (principal); W18.39XA Other fall on same level, initial encounter; Y93.9 Activity, unspecified; Y92.9 Unspecified place or not applicable; Z88.0 Allergy status to penicillin
CPT/HCPCS: 72170; 96372; 99283

== ENCOUNTER 2020-09-29 18:28 | Emergency (ER) | payer MEDICARE, OTHER ==
[2020-09-29 19:21] LABS: Protime INR 1.28
[2020-09-29] MEDS ORDERED: NA CHLORIDE 0.9% 2,000 ML ONE (19:27)
[2020-09-29 19:31] LABS: Absolute Lymphocytes (CBC) 0.7 K/uL (0.7-4.9); Basophils % 0.6 % (0-1.3); Hematocrit 41.4 % (36.0-45.0); Lymphocytes % 14.2 % (15.3-44.8); MPV 9.9 fL (7.6-11.3); RBC Red Blood Cell Count 5.11 M/uL (3.86-4.86)
[2020-09-29] MEDS ORDERED: ACETAMINOPHEN 500 MG TAB ONE (19:32)
[2020-09-29] MEDS ORDERED: PROMETHAZINE INJ 25 MG/ML AMP ONE (19:32)
[2020-09-29 19:37] LABS: ALT/SGPT 22 U/L (12-78); AST/SGOT 25 U/L (15-37); Albumin 2.6 g/dL (3.4-5.0); Alkaline Phosphatase 63 U/L (45-117); Amylase 92 U/L (25-115); BUN Blood Urea Nitrogen 12 mg/dL (7-18); Bicarbonate 25 mmol/L (21-32); Bilirubin Direct 0.2 mg/dL (0-0.2); Bilirubin Total 0.6 mg/dL (0.2-1.0); Creatine Phosphokinase 88 U/L (26-192); Glucose Level 137 mg/dL (74-106); Lipase 112 U/L (73-393); Potassium 3.6 mmol/L (3.5-5.1); Protein, Total 7.2 g/dL (6.4-8.2); Sodium Level 139 mmol/L (136-145); Troponin (Emerg Dept Use Only) < 0.02 ng/mL (0.0-0.045)
[2020-09-29 19:46] LABS: CKMB Creatine Kinase MB < 1.0 ng/mL (1.0-3.6)
--- NOTE | 2020-09-29 20:05 | RAD REPORT ---
EXAM DESCRIPTION: Scott Single View09/29/2020 7:24 pm CLINICAL HISTORY: Chest pain COMPARISON: 2019 FINDINGS: Lungs are mildly hazy. The heart is normal size IMPRESSION: Lungs are mildly hazy which may indicate a mild pneumonia
--- NOTE | 2020-09-29 20:05 | RAD REPORT ---
EXAM DESCRIPTION: CT - Abdomen Pelvis W Contrast - 09/29/2020 7:51 pm CLINICAL HISTORY: Abdominal pain COMPARISON: none. TECHNIQUE: Computed axial tomography of the abdomen pelvis was obtained. 100 cc Isovue-300 was admin istered intravenously. Oral contrast was not requested which limits evaluation of bowel. All CT scans are performed using dose optimization technique as appropriate and may include automated exposure control or mA/KV adjustment according to patient size. FINDINGS: Mild bilateral ground-glass opacities. Fatty liver. Borderline gallbladder distention. Splenic granulomata. The pancreas, adrenals and kidneys are unremarkable Normal appendix There is no evidence of diverticulitis. Hysterectomy. Lucency within the L2 vertebral body has the ap pearance of a hemangioma. Small umbilical hernia IMPRESSION: Mild ground-glass opacities may indicate pneumonia Fatty liver Borderline gallbladder distention
[2020-09-29 21:50] LABS: Urine Blood Trace-lysed (Negative); Urine Glucose Negative (Negative); Urine Protein 1+ (Negative); Urine pH 5.5 (5.0-7.0)
--- NOTE | 2020-09-29 22:22 | EDPHYS ---
Physician Documentation [facility] Name: Denny Clark Age: 64 yrs Sex: Female : 1955 Arrival Date: 09/29/2020 Time: 18:30 Bed 26 Private MD: ED Physician Sandor Cavazos HPI: 09/29 18:59 This 64 yrs old Female presents to ER via EMS with complaints of pm1 Nausea/Vomiting/Diarrhea. 18:59 The patient presents to the emergency department with nausea, vomiting, diarrhea. pm1 Onset: The symptoms/episode began/occurred 1 week(s) ago. Possible causes: sick contacts, by family, covid positive. The symptoms are aggravated by food , The symptoms are alleviated by nothing. Associated signs and symptoms: Pertinent positives: body aches, Pertinent negatives: abdominal pain, fever, chest pain, cough, shortness of breath. Severity of symptoms: in the emergency department the symptoms are unchanged. The patient has not experienced similar symptoms in the past. The patient has not recently seen a physician. Historical: - Allergies: 18:35 PENICILLINS; zb - PMHx: 18:35 Hypertension; zb - Immunization history:: Adult Immunizations up to date. - Social history:: Smoking status: Patient denies any tobacco usage or history of. ROS: 18:59 Eyes: Negative for injury, pain, redness, and discharge, ENT: Negative for injury, pm1 pain, and discharge, Neck: Negative for injury, pain, and swelling, Cardiovascular: Negative for chest pain, palpitations, and edema, Respiratory: Negative for shortness of breath, cough, wheezing, and pleuritic chest pain. 18:59 Back: Negative for injury and pain, : Negative for injury, bleeding, discharge, and swelling, MS/Extremity: Negative for injury and deformity, Skin: Negative for injury, rash, and discoloration, Neuro: Negative for headache, weakness, numbness, tingling, and seizure. 18:59 Constitutional: Positive for body aches, fever, poor PO intake. 18:59 Abdomen/GI: Positive for nausea, vomiting, and diarrhea, Negative for abdominal pain. Exam: 18:59 Constitutional: This is a well developed, well nourished patient who is awake, alert, pm1 and in no acute distress. Head/Face: Normocephalic, atraumatic. Eyes: Pupils equal round and reactive to light, extra-ocular motions intact. Lids and lashes normal. Conjunctiva and sclera are non-icteric and not injected. Cornea within normal limits. Periorbital areas with no swelling, redness, or edema. ENT: Nares patent. No nasal discharge, no septal abnormalities noted. Tympanic membranes are normal and external auditory canals are clear. Oropharynx with no redness, swelling, or masses, exudates, or evidence of obstruction, uvula midline. Mucous membranes moist. Neck: Trachea midline, no thyromegaly or masses palpated, and no cervical lymphadenopathy. Supple, full range of motion without nuchal rigidity, or vertebral point tenderness. No Meningismus. Chest/axilla: Normal chest wall appearance and motion. Nontender with no deformity. No lesions are appreciated. Respiratory: Lungs have equal breath sounds bilaterally, clear to auscultation and percussion. No rales, rhonchi or wheezes noted. No increased work of breathing, no retractions or nasal flaring. Abdomen/GI: Soft, non-tender, with normal bowel sounds. No distension or tympany. No guarding or rebound. No evidence of tenderness throughout. Back: No spinal tenderness. No costovertebral tenderness. Full range of motion. Skin: Warm, dry with normal turgor. Normal color with no rashes, no lesions, and no evidence of cellulitis. MS/ Extremity: Pulses equal, no cyanosis. Neurovascular intact. Full, normal range of motion. 18:59 Cardiovascular: Rate: normal, Rhythm: regular, Pulses: no pulse deficits are appreciated, Heart sounds: normal. 18:59 Neuro: Orientation: is normal, Mentation: is normal, Motor: is normal, moves all fours. Vital Signs: 18:31 BP 152 / 73; Pulse 100; Resp 22; Temp 101.5(O); Pulse Ox 95% on R/A; Weight 90.72 kg; zb Height 5 ft. 9 in. (175.26 cm); Pain 0/10; 19:30 BP 151 / 81; Pulse 97; Resp 23; Pulse Ox 97% on R/A; zb 20:39 BP 162 / 66; Pulse 95; Resp 22; Pulse Ox 97% on R/A; zb 21:15 BP 143 / 69; Pulse 86; Resp 19; Pulse Ox 95% on R/A; zb 22:30 BP 140 / 54; Pulse 82; Resp 20; Temp 99.6(O); Pulse Ox 94% on R/A; zb 18:31 Body Mass Index 29.53 (90.72 kg, 175.26 cm) zb MDM: 18:41 Patient medically screened. shay 21:47 Data reviewed: vital signs. Data interpreted: Pulse oximetry: on room air is 97 %. pm1 Interpretation: normal. 22:21 Counseling: I had a detailed discussion with the patient and/or guardian regarding: the pm1 historical points, exam findings, and any diagnostic results supporting the discharge/admit diagnosis, lab results, radiology results, the need for outpatient follow up, to return to the emergency department if symptoms worsen or persist or if there are any questions or concerns that arise at home. 09/29 18:43 Order name: Amylase, Serum pm09/29 18:43 Order name: Basic Metabolic Panel pm09/29 18:43 Order name: Blood Culture Adult (2) pm09/29 18:43 Order name: CBC with Diff pm09/29 18:43 Order name: Ckmb; Complete Time: 19:56 pm09/29 18:43 Order name: CPK; Complete Time: 19:56 pm09/29 18:43 Order name: Lactate; Complete Time: 19:56 pm09/29 18:43 Order name: LFT's; Complete Time: 19:56 pm09/29 18:43 Order name: Lipase; Complete Time: 19:56 pm09/29 18:43 Order name: Procalcitonin; Complete Time: 19:56 pm09/29 18:43 Order name: Protime (+inr); Complete Time: 19:56 pm09/29 18:43 Order name: Ptt, Activated; Complete Time: 19:56 pm09/29 18:43 Order name: Troponin (emerg Dept Use Only); Complete Time: 19:56 pm09/29 18:43 Order name: Urine Microscopic Only; Complete Time: 13:46 pm09/29 18:43 Order name: Chest Single View XRAY; Complete Time: 20:06 pm09/29 18:43 Order name: Flu; Complete Time: 21:30 pm09/29 18:43 Order name: Strep; Complete Time: 21:30 pm09/29 18:44 Order name: Amylase; Complete Time: 19:56 EDMI 09/29 18:44 Order name: Basic Metabolic Panel; Complete Time: 19:56 EDMI 09/29 18:44 Order name: Blood Culture [facility] 09/29 18:44 Order name: CBC with Automated Diff; Complete Time: 19:56 [facility] 09/29 18:48 Order name: CT Abd/Pelvis - IV Contrast Only; Complete Time: 20:06 pm09/29 21:08 Order name: Throat Culture [facility] 09/29 21:47 Order name: SARS-COV-2 RT PCR; Complete Time: 22:03 EDMI 09/29 21:49 Order name: Urine Dipstick-Ancillary; Complete Time: 22:03 EDMI 09/29 22:25 Order name: Urine Culture [facility] 09/29 18:43 Order name: Accucheck; Complete Time: 19:17 pm09/29 18:43 Order name: Cardiac monitoring; Complete Time: 19:36 pm09/29 18:43 Order name: EKG - Nurse/Tech; Complete Time: 19:36 pm09/29 18:43 Order name: IV Saline Lock - Large Bore; Complete Time: 19:17 pm09/29 18:43 Order name: Labs collected and sent; Complete Time: 19:16 pm09/29 18:43 Order name: O2 Per Protocol; Complete Time: 19:17 pm09/29 18:43 Order name: O2 Sat Monitoring; Complete Time: 19:17 pm09/29 18:43 Order name: Urine Dipstick-Ancillary (obtain specimen); Complete Time: 21:49 pm1 Administered Medications: 19:16 Drug: Phenergan (promethazine) 12.5 mg Route: IVP; Site: right forearm; zb 20:38 Follow up: Response: No adverse reaction; Marked relief of symptoms; Nausea unchanged zb 19:17 Drug: NS 0.9% (30 ml/kg) 30 ml/kg Route: IV; Rate: bolus; Site: right forearm; zb 23:00 Follow up: Response: No adverse reaction; Marked relief of symptoms; IV Status: zb Completed infusion; IV Intake: 2000ml 20:38 Drug: Tylenol 1000 mg Route: PO; zb 22:30 Follow up: Response: Temperature is decreased zb Disposition: 09/29/20 22:21 Discharged to Home. Impression: Coronavirus infection, unspecified, Nausea and vomiting, Diarrhea, unspecified. - Condition is Stable. - Discharge Instructions: Food Choices to Help Relieve Diarrhea, Adult, Diarrhea, Adult, Nausea and Vomiting, Adult, COVID-19. - Prescriptions for ondansetron 4 mg Oral tablet,disintegrating - place 1 tablet by TRANSLINGUAL route every 8 hours As needed; 20 tablet. - Medication Reconciliation Form, Thank You Letter, Antibiotic Education, Prescription Opioid Use form. - Follow up: Emergency Department; When: As needed; Reason: Worsening of condition. Follow up: Private Physician; When: 2 - 3 days; Reason: Recheck today's complaints, Continuance of care, Re-evaluation by your physician. - Problem is new. - Symptoms have improved. Addendum: 10/02/2020 11:35 Co-signature as Attending Physician, Sandor Cavazos MD I agree with the assessment and c hanson plan of care. Signatures: Dispatcher [employer] [facility] Sandor Cavazos MD MD cha Attema, Lee, VIDEO RENTAL CLERK-C VIDEO RENTAL CLERK-Cla1 Al Cooper, CLAIM REPRESENTATIVE CLAIM REPRESENTATIVE pm1 Brittnee Rodriguez RN RN zb Corrections: (The following items were deleted from the chart) 09/29 20:43 18:44 CORONAVIRUS+MR.LAB.BRZ ordered. [facility] 23:33 22:21 09/29/2020 22:21 Discharged to Home. Impression: Coronavirus infection, zb unspecified; Nausea and vomiting; Diarrhea, unspecified. Condition is Stable. Forms are Medication Reconciliation Form, Thank You Letter, Antibiotic Education, Prescription Opioid Use. Follow up: Emergency Department; When: As needed; Reason: Worsening of condition. Follow up: Private Physician; When: 2 - 3 days; Reason: Recheck today's complaints, Continuance of care, Re-evaluation by your physician. Problem is new. Symptoms have improved. pm1
--- NOTE | 2020-09-29 22:22 | ER ---
Nurse's Notes [facility] Name: Denny Clark Age: 64 yrs Sex: Female : 1955 Arrival Date: 09/29/2020 Time: 18:30 Bed 26 Private MD: Diagnosis: Coronavirus infection, unspecified; Nausea and vomiting;Diarrhea, unspecified Presentation: 09/29 18:31 Chief complaint: EMS states: family members called EMS. patient has been experiencing zb n/v/d for over a week. patient c/o body aches. family has covid in early September. patient had not been tested. given 4mg of zofran IV by EMS. denies SOB or chest pain. Coronavirus screen: Client presents with at least one sign or symptom that may indicate coronavirus-19. Standard/surgical mask placed on the client. Provider contacted for isolation considerations. Ebola Screen: No symptoms or risks identified at this time. Initial Sepsis Screen: Does the patient meet any 2 criteria? RR > 20 per min. Temp <36.0*C (96.8*F)) or > 38.3*C (100.9*F). HR > 90 bpm. Does the patient have a suspected source of infection? Yes: Productive cough/pneumonia. Risk Assessment: Do you want to hurt yourself or someone else? Patient reports no desire to harm self or others. Onset of symptoms was September 2020. 18:31 Acuity: RICH 3 zb 18:31 Method Of Arrival: EMS: [facility] zb Triage Assessment: 18:35 General: Appears uncomfortable, Behavior is agitated, Reports chills for >3 days, fever zb for > 3 days, feeling ill for > 3 days, fatigue for >3 days. Pain: Denies pain. Complains of pain in body aches. Neuro: Level of Consciousness is awake, alert, obeys commands, Oriented to person, place, time, situation, Moves all extremities. Cardiovascular: Heart tones S1 S2 present Patient's skin is warm and dry. Pulses are all present. Respiratory: Airway is patent Respiratory effort is even, unlabored, Respiratory pattern is regular, symmetrical. Respiratory: Reports cough that is. GI: Abdomen is round Abd is non tender X 4 quads Reports diarrhea, nausea, vomiting. Derm: No deficits noted. Derm: Skin is diaphoretic. Musculoskeletal: Range of motion: intact in all extremities. Historical: - Allergies: 18:35 PENICILLINS; zb - PMHx: 18:35 Hypertension; zb - Immunization history:: Adult Immunizations up to date. - Social history:: Smoking status: Patient denies any tobacco usage or history of. Screenin:38 Abuse screen: Denies threats or abuse. Denies injuries from another. Nutritional zb screening: Has had N/V for 3 or more days. Tuberculosis screening: No symptoms or risk factors identified. Fall Risk None identified. Assessment: 18:45 Reassessment: notified ecp of c/o of nausea and fever. medication ordered. zb 19:30 Reassessment: Patient appears in no apparent distress at this time. Patient and/or zb family updated on plan of care and expected duration. Pain level reassessed. patient lying in bed at this time. 20:40 Reassessment: patient given Tylenol of water. no vomiting noted at this time. zb 21:30 Reassessment: Patient appears in no apparent distress at this time. Patient and/or zb family updated on plan of care and expected duration. Pain level reassessed. Patient is alert, oriented x 3, equal unlabored respirations, skin warm/dry/pink. 22:31 Reassessment: Patient appears in no apparent distress at this time. Patient and/or zb family updated on plan of care and expected duration. Pain level reassessed. Patient is alert, oriented x 3, equal unlabored respirations, skin warm/dry/pink. 22:40 Reassessment: patient has covid. left in room. till family can come and pick patient zb up. notified charge nurse. agreed. Vital Signs: 18:31 BP 152 / 73; Pulse 100; Resp 22; Temp 101.5(O); Pulse Ox 95% on R/A; Weight 90.72 kg; zb Height 5 ft. 9 in. (175.26 cm); Pain 0/10; 19:30 BP 151 / 81; Pulse 97; Resp 23; Pulse Ox 97% on R/A; zb 20:39 BP 162 / 66; Pulse 95; Resp 22; Pulse Ox 97% on R/A; zb 21:15 BP 143 / 69; Pulse 86; Resp 19; Pulse Ox 95% on R/A; zb 22:30 BP 140 / 54; Pulse 82; Resp 20; Temp 99.6(O); Pulse Ox 94% on R/A; zb 18:31 Body Mass Index 29.53 (90.72 kg, 175.26 cm) zb ED Course: 18:30 Patient arrived in ED. zb 18:35 Triage completed. zb 18:38 Patient has correct armband on for positive identification. Bed in low position. Call zb light in reach. Side rails up X 1. residential monitor on. Pulse ox on. NIBP on. 18:38 Maintain EMS IV. Dressing intact. Good blood return noted. Site clean \T\ dry. Gauge \T\ zb site: 20 RAC . 18:41 Al Cooper NP is PHCP. pm1 18:41 Sandor Cavazos MD is Attending Physician. pm1 18:48 Brittnee Rodriguez RN is Primary Nurse. zb 19:24 Chest Single View XRAY In Process Unspecified. EDMS 19:51 CT Abd/Pelvis - IV Contrast Only In Process Unspecified. EDMS 23:00 Arm band placed on. zb 23:30 No provider procedures requiring assistance completed. IV discontinued, intact, zb bleeding controlled, No redness/swelling at site. Pressure dressing applied. Administered Medications: 19:16 Drug: Phenergan (promethazine) 12.5 mg Route: IVP; Site: right forearm; zb 20:38 Follow up: Response: No adverse reaction; Marked relief of symptoms; Nausea unchanged zb 19:17 Drug: NS 0.9% (30 ml/kg) 30 ml/kg Route: IV; Rate: bolus; Site: right forearm; zb 23:00 Follow up: Response: No adverse reaction; Marked relief of symptoms; IV Status: zb Completed infusion; IV Intake: 2000ml 20:38 Drug: Tylenol 1000 mg Route: PO; zb 22:30 Follow up: Response: Temperature is decreased zb Intake: 23:00 IV: 2000ml; Total: 2000ml. zb Outcome: 22:21 Discharge ordered by . pm1 23:00 Discharged to home via wheelchair. zb 23:00 Condition: stable 23:00 Discharge instructions given to patient, Instructed on discharge instructions, follow up and referral plans. medication usage, Demonstrated understanding of instructions, follow-up care, medications, Prescriptions given X 1. 23:33 Patient left the ED. bill Signatures: Dispatcher [employer] EDMS Al Cooper NP GMAT TUTOR pm1 Brittnee Rodriguez, RN RN bill
[2020-09-29 22:25] LABS: Urine Bacteria 20-50 /HPF (<20); Urine RBC <5 /HPF (NONE SEEN)
[2020-09-29 23:45] VITALS: BP 140/54; TEMP 99.6; O2SAT 94
--- NOTE | 2020-09-30 15:49 | EKG ---
Test Date: 2020-09-29 Test Time: 19:32:49 Automobile Mechanic Motor: IAIN MEASUREMENT RESULTS: Intervals: Rate: 96 LA: 84 QRSD: 98 QT: 376 QTc: 475 [place]: P: 22 LA: 84 QRS: 26 T: 21 INTERPRETIVE STATEMENTS: Sinus rhythm with short LA Nonspecific ST and T wave abnormality Abnormal ECG No previous ECG available for comparison Electronically Signed On 09-30-20 15:47:08 CDT by Benito Engel
== END 2020-09-29 23:33 | disposition home or self-care (01) ==
LOC: ER 18:28
DX: U07.1 COVID-19 (principal); I10 Essential (primary) hypertension
CPT/HCPCS: 93005; 87040 ×2; 87070; 87088; 85025; 87086; 80048; 36415; 82150; 82550; 85610; 80076; 87081; 83605; 85730; 84484; 82553; 83690; 84145; 87804 ×2; 74177; 71045; U0003; Q9967; J2550; J7030; 81003; 81015; 96365; 96366; 96375; 99284